=== PATIENT | female | born 1930 | race Caucasian/White ===

== ENCOUNTER 2017-09-27 15:01 | Inpatient (IN) | payer MEDICARE, OTHER ==
[~2017-09-27] VITALS: Ht 165.1 cm; Wt 79.1 kg
[~2017-09-27 15:01] MED LIST: ALLO300 PO; ASPI325 PO; AZIT250 PO; BUPR150ER; CEFP200 PO; DILT120 PO; ENOX40I SC; GABA300; GARLIC; GEMF600; LEVSOD125 PO; POTCIT10; PRED10 PO
[2017-09-27 15:35] LABS: Calcium, Ionized (POC) 1.13 mmol/L (1.10-1.46); Chloride (POC) 94 mmol/L (98-108); Glucose (ISTAT POC) 208 mg/dL (70-99); Hemoglobin (POC) 15.3 g/dL (12.0-16.0); Potassium (POC) 4.4 mmol/L (3.5-5.5); Sodium (POC) 131 mmol/L (135-148); Total CO2 (POC) 23 mmol/L (21-32)
[2017-09-27 15:49] LABS: BASOPHILS ABSOLUTE AUTO 0.03 K/mm3 (0.00-0.23); BASOPHILS PERCENT AUTO 0 % (0-2); EOSINOPHILS PERCENT AUTO 0 % (0-6); Hematocrit 42.1 % (33.0-51.0); Hemoglobin 14.8 g/dL (11.5-16.0); IMMATURE GRAN ABSOLUTE AUTO 0.09 K/mm3 (0.00-0.10); IMMATURE GRAN PERCENT AUTO 1 % (0-1); LYMPHOCYTES ABSOLUTE AUTO 0.82 K/mm3 (0.84-5.20); LYMPHOCYTES PERCENT AUTO 6 % (21-46); MONOCYTES ABSOLUTE AUTO 0.79 K/mm3 (0.16-1.47); MONOCYTES PERCENT AUTO 6 % (4-13); Mean Corpuscular HGB 34.7 pg (26.0-34.0); Mean Corpuscular HGB Conc 35.2 g/dL (31.5-36.5); Mean Corpuscular Volume 99 fL (80-100); NEUTROPHILS ABSOLUTE AUTO 11.45 K/mm3 (1.96-9.15); NEUTROPHILS PERCENT AUTO 87 % (41-73); Platelet Count 266 K/mm3 (150-400); RDW Coefficient Variation 12.3 % (11.7-14.2); RDW Standard Deviation 44.4 fL (35.1-46.3); Red Blood Cell Count 4.26 M/mm3 (3.80-5.20); White Blood Cell Count 13.18 K/mm3 (4.00-11.30)
[2017-09-27 16:07] LABS: Troponin I <0.015 ng/mL (0.000-0.040)
[2017-09-27 16:08] LABS: Alanine Aminotransfer (ALT/SGP 32 U/L (12-78); Albumin, Blood 3.6 g/dL (3.4-5.0); Albumin/Globulin Ratio 0.9 (0.8-1.8); Alk Phos 87 U/L (50-136); Anion Gap 16 mmol/L (6-16); Aspartate Aminotrans (AST/SGOT 90 U/L (12-37); Bilirubin, Total 0.9 mg/dL (0.1-1.0); Blood Urea Nitrogen 19 mg/dL (8-24); Bun/Creatinine Ratio 18.3 (12.0-20.0); CO2, Blood 21 mmol/L (21-32); Calcium, Blood 9.4 mg/dL (8.5-10.1); Chloride, Blood 94 mmol/L (98-108); Creatinine, Blood 1.04 mg/dL (0.40-1.00); Globulin, Blood 4.2 g/dL (2.2-4.0); Glomerular Filtration Rate 53 (60-); Glucose, Blood 213 mg/dL (70-99); Potassium, Blood 4.2 mmol/L (3.5-5.5); Sodium, Blood 131 mmol/L (136-145); Total Protein, Blood 7.8 g/dL (6.4-8.2)
[2017-09-27 16:18] LABS: CPK Creatine Kinase 2357 U/L (26-193)
[2017-09-27] MEDS ORDERED: METO25ER PO (16:22)
[2017-09-27 16:23] LABS: Source, Urine Catheter
[2017-09-27 16:34] LABS: Creatine Kinase MB Index 1.1 (0.0-4.0)
[2017-09-27 16:36] LABS: Appearance, Urine Clear (Clear); Bilirubin, Urine Neg (Neg); Blood, Urine 4+ (Neg); Color, Urine Yellow (P-Yellow); Glucose Qualitative, Urine Neg (Neg); Ketones, Urine 2+ (Neg); Leukocyte Esterase, Urine 2+ (Neg); Nitrite, Urine Neg (Neg); Protein, Urine 3+ (Neg); Specific Gravity, Urine 1.025 (1.003-1.022); Urobilinogen, Urine NORM (Normal)
[2017-09-27 16:47] LABS: White Blood Cells, Urine TNTC /hpf (0-5)
[2017-09-27 16:48] LABS: Bacteria Many /hpf; Squamous Epithelial Cells Few /hpf (Few)
[2017-09-27 18:45] LABS: Magnesium, Blood 2.1 mg/dL (1.6-2.4)
[2017-09-28 05:41] LABS: BASOPHILS ABSOLUTE AUTO 0.03 K/mm3 (0.00-0.23); BASOPHILS PERCENT AUTO 0 % (0-2); EOSINOPHILS ABSOLUTE AUTO 0.03 K/mm3 (0.00-0.68); EOSINOPHILS PERCENT AUTO 0 % (0-6); Hematocrit 40.3 % (33.0-51.0); Hemoglobin 14.3 g/dL (11.5-16.0); IMMATURE GRAN PERCENT AUTO 1 % (0-1); LYMPHOCYTES ABSOLUTE AUTO 1.77 K/mm3 (0.84-5.20); LYMPHOCYTES PERCENT AUTO 15 % (21-46); MONOCYTES ABSOLUTE AUTO 1.83 K/mm3 (0.16-1.47); MONOCYTES PERCENT AUTO 16 % (4-13); Mean Corpuscular HGB 34.6 pg (26.0-34.0); Mean Corpuscular HGB Conc 35.5 g/dL (31.5-36.5); Mean Corpuscular Volume 98 fL (80-100); NEUTROPHILS ABSOLUTE AUTO 8.06 K/mm3 (1.96-9.15); NEUTROPHILS PERCENT AUTO 68 % (41-73); RDW Coefficient Variation 12.5 % (11.7-14.2); RDW Standard Deviation 44.5 fL (35.1-46.3); Red Blood Cell Count 4.13 M/mm3 (3.80-5.20); White Blood Cell Count 11.82 K/mm3 (4.00-11.30)
[2017-09-28 05:48] LABS: Mean Platelet Volume 10.6 fL (9.1-12.4); Platelet Count 150 K/mm3 (150-400)
[2017-09-28 06:03] LABS: Anion Gap 12 mmol/L (6-16); Blood Urea Nitrogen 23 mg/dL (8-24); Bun/Creatinine Ratio 25.8 (12.0-20.0); CO2, Blood 23 mmol/L (21-32); CPK Creatine Kinase 1695 U/L (26-193); Calcium, Blood 8.2 mg/dL (8.5-10.1); Chloride, Blood 102 mmol/L (98-108); Creatinine, Blood 0.89 mg/dL (0.40-1.00); Glomerular Filtration Rate >60 (60-); Glucose, Blood 102 mg/dL (70-99); Sodium, Blood 137 mmol/L (136-145)
[2017-09-30 10:51] LABS: BASOPHILS ABSOLUTE AUTO 0.02 K/mm3 (0.00-0.23); BASOPHILS PERCENT AUTO 0 % (0-2); EOSINOPHILS ABSOLUTE AUTO 0.14 K/mm3 (0.00-0.68); EOSINOPHILS PERCENT AUTO 3 % (0-6); Hematocrit 32.3 % (33.0-51.0); IMMATURE GRAN ABSOLUTE AUTO 0.04 K/mm3 (0.00-0.10); IMMATURE GRAN PERCENT AUTO 1 % (0-1); LYMPHOCYTES ABSOLUTE AUTO 1.17 K/mm3 (0.84-5.20); LYMPHOCYTES PERCENT AUTO 23 % (21-46); MONOCYTES ABSOLUTE AUTO 0.44 K/mm3 (0.16-1.47); MONOCYTES PERCENT AUTO 9 % (4-13); Mean Corpuscular HGB 35.3 pg (26.0-34.0); Mean Corpuscular HGB Conc 34.1 g/dL (31.5-36.5); Mean Platelet Volume 9.8 fL (9.1-12.4); NEUTROPHILS ABSOLUTE AUTO 3.35 K/mm3 (1.96-9.15); NEUTROPHILS PERCENT AUTO 65 % (41-73); Platelet Count 188 K/mm3 (150-400); RDW Coefficient Variation 12.6 % (11.7-14.2); RDW Standard Deviation 47.6 fL (35.1-46.3); Red Blood Cell Count 3.12 M/mm3 (3.80-5.20); White Blood Cell Count 5.16 K/mm3 (4.00-11.30)
[2017-09-30 10:57] LABS: Mean Corpuscular Volume 104 fL (80-100)
[2017-09-30] MEDS ORDERED: Acetaminophen325 M1 PO (13:04)
[2017-09-30] MEDS ORDERED: AMOX250 PO (13:05)
[2017-09-30] MEDS ORDERED: Carbidopa-Levo1 EAC1 PO (13:05)
== END 2017-09-30 15:47 | disposition home or self-care (01) | DRG 689 ==
LOC: ER 15:01 → MEDS 17:47 → EDPENDDIS 09-30 13:07 → ENPENDDIS 09-30 13:07 → MEDS 09-30 15:47
PROVIDERS: Emergency Medicine; Internal Medicine; Nurse Practitioner Acute Care
DX: N39.0 Urinary tract infection, site not specified (principal); G93.41 Metabolic encephalopathy; S32.050A Wedge compression fracture of fifth lumbar vertebra, initial encounter for closed fracture; N17.9 Acute kidney failure, unspecified; E87.1 Hypo-osmolality and hyponatremia; Z51.5 Encounter for palliative care; E03.9 Hypothyroidism, unspecified; G20 Parkinson's disease; I48.0 Paroxysmal atrial fibrillation; E78.5 Hyperlipidemia, unspecified; E86.0 Dehydration; E87.6 Hypokalemia; F31.9 Bipolar disorder, unspecified; W19.XXXA Unspecified fall, initial encounter; B95.2 Enterococcus as the cause of diseases classified elsewhere; T79.6XXA Traumatic ischemia of muscle, initial encounter; Z66 Do not resuscitate; B96.5 Pseudomonas (aeruginosa) (mallei) (pseudomallei) as the cause of diseases classified elsewhere
CPT/HCPCS: 36415; 51702; 70450; 71045; 72070; 72100; 73020; 80047; 80048; 80053; 81001; 82550; 82553; 82947; 83735; 84484; 85014; 85025; 87077; 87086; 87186; 93005; 93010; 94760; 96361; 96374; 97110; 97162; 97166; 97535; 99285-25; G8978; G8979; G8987; G8988; J0696; J0744; J1650; J7030